=== PATIENT | female | born 1955 | race Caucasian/White ===

== ENCOUNTER 2017-01-23 17:36 | Emergency (ER) | payer MEDICARE, BC ==
[2017-01-23 17:01] LABS: BASOPHILS 0.7 %; BASOPHILS ABSOLUTE 0.08 10/3/uL (0.0-0.16); EOSINOPHILS 4.2 %; EOSINOPHILS ABSOLUTE 0.46 10/3/uL (0.0-0.53); HEMATOCRIT 40.2 % (36.0-48.0); HEMOGLOBIN 14.2 g/dL (12.0-16.0); IMMATURE GRANULOCYTES 0.4 %; IMMATURE GRANULOCYTES ABSOLUTE 0.04 10/3/uL (0.0-0.11); LYMPHOCYTES 35.8 %; LYMPHOCYTES ABSOLUTE 3.89 10/3/uL (0.67-4.30); MEAN CORPUS HGB CONC 35.3 g/dL (32.0-36.0); MEAN CORPUSCULAR HEMOGLOB 32.1 pg (26.0-34.0); MEAN CORPUSCULAR VOLUME 90.7 fL (80-100); MEAN PLATELET VOLUME 8.9 fL (9.2-13.0); MONOCYTES 4.8 %; MONOCYTES ABSOLUTE 0.52 10/3/uL (0.21-1.20); NEUTROPHILS 54.1 %; NEUTROPHILS ABSOLUTE 5.89 10/3/uL (2.02-8.40); RBC DISTRIBUTION WIDTH 15.5 % (12.0-16.0); RED CELL COUNT 4.43 10/6/uL (4.0-5.6); WHITE BLOOD CELLS 10.9 10/3/uL (4.5-10.5)
[2017-01-23 17:02] LABS: MANUAL DIFF NO %; PLATELET COUNT 273 10/3/uL (150-400)
[2017-01-23 17:11] LABS: INTERNATIONAL NORMAL RATI 1.1 UNITS (-); PROTIME (NOT ORD) 13.8 SEC (12.0-14.5)
[2017-01-23 17:12] LABS: PARTIAL THROMBO TIME 32.3 SEC (22.5-37.2)
[2017-01-23 17:18] LABS: BUN (BLOOD UREA NITROGEN) 8 MG/DL (6-23); CALCIUM, SERUM 8.8 MG/DL (8.5-10.4); CHEST PAIN PROFILE TAT 0 Hrs 23 Mins; CHLORIDE, SERUM 104 MMOL/L (96-112); CO2 (CARBON DIOXIDE) 29 MMOL/L (24-34); CREATININE 0.73 MG/DL (0.55-1.02); GFR AFRICAN AMERICAN 102 ML/MIN (>=60); GFR NON AFRICAN AMERICAN 88 ML/MIN (>=60); GLUCOSE, SERUM 100 MG/DL (60-99); POTASSIUM, SERUM 3.8 MMOL/L (3.5-5.3); SODIUM, SERUM 142 MMOL/L (135-148); TROPONIN I <0.02 NG/ML (<0.05)
[~2017-01-23 17:36] MED LIST: ABILIFY; ABILIFY10 PO; ABILIFY20 MG PO; ABILIFY30 MG PO; ACCUNE1; ACCUNE1 INH; ACCUNEB INH; ALBUTEROL5 INH; ALEVE220 MG PO; AMB10 PO; AMITIZA24 PO; ASAB PO; ASABAYER PO; ATIVAN2 MG PO; AUG875 PO; BACDS PO; BEN25 PO; BIST PO; CALCIUM TABLET PO; CALTRA600D PO; CARASPUDL PO; CENTRUM PO; CENTRUM TAB1 TAB PO; CIP5 PO; CIPRO; COREG12 PO; CYMBALTA20 PO; CYMBALTA30 PO; CYMBALTA60 PO; D.O.S.100 MG PO; DIOV80; DIOVAN; DIOVAN HC1 PO; DIOVAN HCT160 MG/25 PO; DIOVAN HCT320 MG/25 PO; DIOVAN320 MG PO; DSS PO; DUONEB INH; FISH-EPA1000 MG PO; FLAG500TAB PO; FLAGYL; FLUCON1 PO; FLUCON150 PO; HYOMAX-SL0.125 MG PO; IMDUR30 PO; IMDUR60 PO; KDUR20 PO; KLOR-CON M2020 MEQ PO; L40 PO; LEVAQUIN5T PO; LEVSINTAB PO; LOP25 PO; LOP50 PO; LORT7 PO; LORTAB 5 PO; METPAKSF; METPAKSF PO; MOVANTIK25 MG PO; MSCONTIN PO; MULTIVIT/MIN PO; MULTIVITAMI1 PO; NAP500 PO; NEUR600 PO; NICODERM C21 MG/241 TOP; NITROSTAT0.4 MG SL; NORV10 PO; NORV5 PO; NORVASC; OMNICEF300 PO; OXYCON40 PO; OXYCONTIN15 MG; P125 PO; PCET PO; PEP20 PO; PERCOCET1 TA2 PO; PERCOCET1 TA4 PO; PLAVIX PO; POT GLUCONAT550 M1 OR; PR25 PO; PREV30 PO; PRILO PO; PRILOSEC40 MG PO; PROAIR HFA INH; PROVENTSOL INH; PROVIGIL2 PO; RAN500 PO; REG PO; ROXICODONE15 MG PO; ROZEREM8 MG PO; SPIRIVA INH; SPIRIVA RESPIMAT INH; STERAPRED DS10 MG; STOOL SOFTEN100 MG PO; T PO; V5 PO; VICODINTAB PO; VITAMIN B PO; VITAMIN C OTC PO; VITAMIN D TABLET PO; VITAMIN D31000 UNIT PO; VITC500 PO; ZITH250 PO; ZITHROMAX500 MG PO; ZOCOR20 PO; ZOCOR40 PO; ZOFRAN4 PO; ZOL100 PO; ZOL50 PO
[2017-04-05] MEDS ORDERED: P20 PO (19:36)
[2017-04-05] MEDS ORDERED: CHERATUSSIN PO (19:37)
[2017-04-05] MEDS ORDERED: Z-PAK PO (19:37)
[2017-04-05] MEDS ORDERED: CARASPUDL PO (19:38)
[2017-04-05] MEDS ORDERED: P125 PO (19:38)
[2017-04-05] MEDS ORDERED: VITC500 PO (19:39)
[2017-04-05] MEDS ORDERED: IMDUR60 PO (19:39)
[2017-04-05] MEDS ORDERED: ASABAYER PO (19:41)
[2017-04-05] MEDS ORDERED: DIOVAN320 MG PO (19:41)
[2017-04-05] MEDS ORDERED: LOP100 PO (19:41)
[2017-04-05] MEDS ORDERED: ZOCOR20 PO (19:41)
[2017-04-05] MEDS ORDERED: NITROGLYCERIN SPRAY SL (19:42)
[2017-04-05] MEDS ORDERED: PRILOSEC40 MG PO (19:43)
[2017-04-05] MEDS ORDERED: CENTRUM PO (19:43)
[2017-04-05] MEDS ORDERED: KLOR-CON M2020 MEQ PO (19:43)
[2017-04-05] MEDS ORDERED: CYMBALTA60 PO (19:43)
[2017-04-05] MEDS ORDERED: ABILIFY30 MG PO (19:44)
[2017-04-05] MEDS ORDERED: SUPER B COMP PO (19:44)
[2017-04-05] MEDS ORDERED: METAMUCIL CAN7 OZ PO (19:46)
[2017-04-05] MEDS ORDERED: ANADS PO (19:46)
[2017-04-05] MEDS ORDERED: L40 PO (19:47)
[2017-04-05] MEDS ORDERED: DUONEB INH (19:48)
[2017-04-05] MEDS ORDERED: PROAIR HFA INH (19:48)
[2017-04-05] MEDS ORDERED: ZOFRAN ODT4 MG PO (19:48)
[2017-04-05] MEDS ORDERED: EXCEDRINE MIGRAINE PO (19:49)
[2017-04-05] MEDS ORDERED: CLEOCIN PE75 MG/5 ML PO (19:50)
[2017-04-05] MEDS ORDERED: DSS PO (19:51)
[2017-04-12] MEDS ORDERED: NORV5 PO (17:41)
[2017-04-12] MEDS ORDERED: FLUCON1 PO (17:44)
[2017-04-12] MEDS ORDERED: NYS500UDL PO (17:47)
[2017-04-12] MEDS ORDERED: OMNICEF300 PO (17:50)
[2017-04-12] MEDS ORDERED: MEDROL8 MG PO (17:51)
[2017-04-12] MEDS ORDERED: NORCO1 TA1 PO (17:51)
[2017-04-12] MEDS ORDERED: L40 PO (17:51)
[2017-05-26] MEDS ORDERED: NXL6 PO (15:12)
[2017-05-26] MEDS ORDERED: HYDROCHLOROT25 MG PO (15:13)
[2017-06-14] MEDS ORDERED: P125 PO (23:35)
[2017-06-14] MEDS ORDERED: IMDUR60 PO (23:36)
[2017-06-14] MEDS ORDERED: DIOVAN320 MG PO (23:36)
[2017-06-14] MEDS ORDERED: LOP100 PO (23:36)
[2017-06-14] MEDS ORDERED: ZOCOR20 PO (23:37)
[2017-06-14] MEDS ORDERED: HCTZ25B PO (23:37)
[2017-06-14] MEDS ORDERED: ASABAYER PO (23:37)
[2017-06-14] MEDS ORDERED: ADALAT CC60 MG PO (23:37)
[2017-06-14] MEDS ORDERED: KLOR-CON M2020 MEQ PO (23:38)
[2017-06-14] MEDS ORDERED: SUPER B COMP PO (23:38)
[2017-06-14] MEDS ORDERED: PRILOSEC40 MG PO (23:38)
[2017-06-14] MEDS ORDERED: CYMBALTA60 PO (23:38)
[2017-06-14] MEDS ORDERED: ABILIFY30 MG PO (23:38)
[2017-06-14] MEDS ORDERED: NITROLINGUAL S4.9 GM SL (23:39)
[2017-06-14] MEDS ORDERED: CENTRUM PO (23:39)
[2017-06-14] MEDS ORDERED: DSS PO (23:39)
[2017-06-14] MEDS ORDERED: VITC500 PO (23:39)
[2017-06-14] MEDS ORDERED: ZOFRAN ODT4 MG PO (23:40)
[2017-06-14] MEDS ORDERED: L40 PO (23:40)
[2017-06-14] MEDS ORDERED: PR25 PO (23:40)
[2017-06-14] MEDS ORDERED: CARASPUDL PO (23:41)
[2017-06-14] MEDS ORDERED: PROAIR HFA INH (23:41)
[2017-06-14] MEDS ORDERED: DUONEB INH (23:41)
[2017-06-16] MEDS ORDERED: NXL6 PO (14:05)
== END 2017-01-23 17:55 | disposition home or self-care (01) ==
LOC: ER 17:36
PROVIDERS: Emergency Medicine
DX: R07.89 Other chest pain (principal); F41.9 Anxiety disorder, unspecified; J44.9 Chronic obstructive pulmonary disease, unspecified; I10 Essential (primary) hypertension; F17.200 Nicotine dependence, unspecified, uncomplicated; Z88.2 Allergy status to sulfonamides; Z88.5 Allergy status to narcotic agent; Z88.8 Allergy status to other drugs, medicaments and biological substances; Z79.82 Long term (current) use of aspirin; Z79.899 Other long term (current) drug therapy
CPT/HCPCS: 71010; 80048; 83735; 84484; 85025; 85610; 85730; 93005; 96365; 99285; J2800

== ENCOUNTER 2017-02-12 03:37 | Emergency (ER) | payer MEDICARE, BC ==
[2017-02-12 03:27] LABS: BASOPHILS 0.4 %; BASOPHILS ABSOLUTE 0.05 10/3/uL (0.0-0.16); EOSINOPHILS 2.5 %; EOSINOPHILS ABSOLUTE 0.28 10/3/uL (0.0-0.53); HEMATOCRIT 38.5 % (36.0-48.0); HEMOGLOBIN 13.5 g/dL (12.0-16.0); IMMATURE GRANULOCYTES 0.4 %; IMMATURE GRANULOCYTES ABSOLUTE 0.04 10/3/uL (0.0-0.11); LYMPHOCYTES 32.6 %; LYMPHOCYTES ABSOLUTE 3.64 10/3/uL (0.67-4.30); MANUAL DIFF NO %; MEAN CORPUS HGB CONC 35.1 g/dL (32.0-36.0); MEAN CORPUSCULAR HEMOGLOB 32.5 pg (26.0-34.0); MEAN CORPUSCULAR VOLUME 92.8 fL (80-100); MEAN PLATELET VOLUME 8.8 fL (9.2-13.0); MONOCYTES 5.4 %; NEUTROPHILS 58.7 %; NEUTROPHILS ABSOLUTE 6.55 10/3/uL (2.02-8.40); PLATELET COUNT 239 10/3/uL (150-400); RED CELL COUNT 4.15 10/6/uL (4.0-5.6); WHITE BLOOD CELLS 11.2 10/3/uL (4.5-10.5)
[2017-02-12 03:34] LABS: PROTIME (NOT ORD) 13.2 SEC (12.0-14.5)
[2017-02-12 03:44] LABS: ALCOHOL 75 MG/DL (0); BUN (BLOOD UREA NITROGEN) 11 MG/DL (6-23); CALCIUM, SERUM 8.6 MG/DL (8.5-10.4); CHEST PAIN PROFILE TAT 0 Hrs 21 Mins; CHLORIDE, SERUM 105 MMOL/L (96-112); CO2 (CARBON DIOXIDE) 24 MMOL/L (24-34); GFR AFRICAN AMERICAN 79 ML/MIN (>=60); GFR NON AFRICAN AMERICAN 68 ML/MIN (>=60); GLUCOSE, SERUM 107 MG/DL (60-99); POTASSIUM, SERUM 3.4 MMOL/L (3.5-5.3); SALICYLATE 2.9 MG/DL (-); SODIUM, SERUM 144 MMOL/L (135-148); TROPONIN I <0.02 NG/ML (<0.05)
[2017-02-12 03:46] LABS: ACETAMINOPHEN LEVEL (TYLENOL) < 2.0 MCG/ML (10.0-20.0)
[2017-04-05] MEDS ORDERED: P20 PO (19:36)
[2017-04-05] MEDS ORDERED: Z-PAK PO (19:37)
[2017-04-05] MEDS ORDERED: CHERATUSSIN PO (19:37)
[2017-04-05] MEDS ORDERED: P125 PO (19:38)
[2017-04-05] MEDS ORDERED: CARASPUDL PO (19:38)
[2017-04-05] MEDS ORDERED: VITC500 PO (19:39)
[2017-04-05] MEDS ORDERED: IMDUR60 PO (19:39)
[2017-04-05] MEDS ORDERED: ZOCOR20 PO (19:41)
[2017-04-05] MEDS ORDERED: LOP100 PO (19:41)
[2017-04-05] MEDS ORDERED: ASABAYER PO (19:41)
[2017-04-05] MEDS ORDERED: DIOVAN320 MG PO (19:41)
[2017-04-05] MEDS ORDERED: NITROGLYCERIN SPRAY SL (19:42)
[2017-04-05] MEDS ORDERED: PRILOSEC40 MG PO (19:43)
[2017-04-05] MEDS ORDERED: KLOR-CON M2020 MEQ PO (19:43)
[2017-04-05] MEDS ORDERED: CYMBALTA60 PO (19:43)
[2017-04-05] MEDS ORDERED: CENTRUM PO (19:43)
[2017-04-05] MEDS ORDERED: ABILIFY30 MG PO (19:44)
[2017-04-05] MEDS ORDERED: SUPER B COMP PO (19:44)
[2017-04-05] MEDS ORDERED: ANADS PO (19:46)
[2017-04-05] MEDS ORDERED: METAMUCIL CAN7 OZ PO (19:46)
[2017-04-05] MEDS ORDERED: L40 PO (19:47)
[2017-04-05] MEDS ORDERED: ZOFRAN ODT4 MG PO (19:48)
[2017-04-05] MEDS ORDERED: DUONEB INH (19:48)
[2017-04-05] MEDS ORDERED: PROAIR HFA INH (19:48)
[2017-04-05] MEDS ORDERED: EXCEDRINE MIGRAINE PO (19:49)
[2017-04-05] MEDS ORDERED: CLEOCIN PE75 MG/5 ML PO (19:50)
[2017-04-05] MEDS ORDERED: DSS PO (19:51)
[2017-04-12] MEDS ORDERED: NORV5 PO (17:41)
[2017-04-12] MEDS ORDERED: FLUCON1 PO (17:44)
[2017-04-12] MEDS ORDERED: NYS500UDL PO (17:47)
[2017-04-12] MEDS ORDERED: OMNICEF300 PO (17:50)
[2017-04-12] MEDS ORDERED: L40 PO (17:51)
[2017-04-12] MEDS ORDERED: MEDROL8 MG PO (17:51)
[2017-04-12] MEDS ORDERED: NORCO1 TA1 PO (17:51)
[2017-05-26] MEDS ORDERED: NXL6 PO (15:12)
[2017-05-26] MEDS ORDERED: HYDROCHLOROT25 MG PO (15:13)
[2017-06-14] MEDS ORDERED: P125 PO (23:35)
[2017-06-14] MEDS ORDERED: LOP100 PO (23:36)
[2017-06-14] MEDS ORDERED: IMDUR60 PO (23:36)
[2017-06-14] MEDS ORDERED: DIOVAN320 MG PO (23:36)
[2017-06-14] MEDS ORDERED: ASABAYER PO (23:37)
[2017-06-14] MEDS ORDERED: ADALAT CC60 MG PO (23:37)
[2017-06-14] MEDS ORDERED: HCTZ25B PO (23:37)
[2017-06-14] MEDS ORDERED: ZOCOR20 PO (23:37)
[2017-06-14] MEDS ORDERED: KLOR-CON M2020 MEQ PO (23:38)
[2017-06-14] MEDS ORDERED: SUPER B COMP PO (23:38)
[2017-06-14] MEDS ORDERED: CYMBALTA60 PO (23:38)
[2017-06-14] MEDS ORDERED: ABILIFY30 MG PO (23:38)
[2017-06-14] MEDS ORDERED: PRILOSEC40 MG PO (23:38)
[2017-06-14] MEDS ORDERED: DSS PO (23:39)
[2017-06-14] MEDS ORDERED: NITROLINGUAL S4.9 GM SL (23:39)
[2017-06-14] MEDS ORDERED: VITC500 PO (23:39)
[2017-06-14] MEDS ORDERED: CENTRUM PO (23:39)
[2017-06-14] MEDS ORDERED: ZOFRAN ODT4 MG PO (23:40)
[2017-06-14] MEDS ORDERED: PR25 PO (23:40)
[2017-06-14] MEDS ORDERED: L40 PO (23:40)
[2017-06-14] MEDS ORDERED: CARASPUDL PO (23:41)
[2017-06-14] MEDS ORDERED: PROAIR HFA INH (23:41)
[2017-06-14] MEDS ORDERED: DUONEB INH (23:41)
[2017-06-16] MEDS ORDERED: NXL6 PO (14:05)
== END 2017-02-12 06:12 | disposition home or self-care (01) ==
LOC: ER 03:37
PROVIDERS: Nurse Practitioner
DX: R07.9 Chest pain, unspecified (principal); Z72.89 Other problems related to lifestyle; F41.9 Anxiety disorder, unspecified; I10 Essential (primary) hypertension; K21.9 Gastro-esophageal reflux disease without esophagitis; F32.9 Major depressive disorder, single episode, unspecified; F17.200 Nicotine dependence, unspecified, uncomplicated; E78.5 Hyperlipidemia, unspecified; Z95.5 Presence of coronary angioplasty implant and graft; Z88.2 Allergy status to sulfonamides; Z88.5 Allergy status to narcotic agent; Z88.8 Allergy status to other drugs, medicaments and biological substances; Z79.82 Long term (current) use of aspirin; Z79.899 Other long term (current) drug therapy
CPT/HCPCS: 71010; 80048; 80307; 83690; 83735; 84484; 85025; 85610; 85730; 93005; 99285; A9270-GY

== ENCOUNTER 2017-03-30 03:31 | Emergency (ER) | payer MEDICARE, BC ==
[2017-03-30 03:02] LABS: BASOPHILS 0.9 %; BASOPHILS ABSOLUTE 0.09 10/3/uL (0.0-0.16); EOSINOPHILS 4.3 %; EOSINOPHILS ABSOLUTE 0.44 10/3/uL (0.0-0.53); HEMATOCRIT 40.3 % (36.0-48.0); HEMOGLOBIN 13.5 g/dL (12.0-16.0); IMMATURE GRANULOCYTES 0.2 %; IMMATURE GRANULOCYTES ABSOLUTE 0.02 10/3/uL (0.0-0.11); LYMPHOCYTES 39.7 %; LYMPHOCYTES ABSOLUTE 4.11 10/3/uL (0.67-4.30); MEAN CORPUS HGB CONC 33.5 g/dL (32.0-36.0); MEAN CORPUSCULAR HEMOGLOB 32.5 pg (26.0-34.0); MEAN CORPUSCULAR VOLUME 97.1 fL (80-100); MEAN PLATELET VOLUME 9.1 fL (9.2-13.0); MONOCYTES 5.4 %; MONOCYTES ABSOLUTE 0.56 10/3/uL (0.21-1.20); NEUTROPHILS 49.5 %; NEUTROPHILS ABSOLUTE 5.12 10/3/uL (2.02-8.40); PLATELET COUNT 226 10/3/uL (150-400); RBC DISTRIBUTION WIDTH 13.6 % (12.0-16.0); RED CELL COUNT 4.15 10/6/uL (4.0-5.6); WHITE BLOOD CELLS 10.3 10/3/uL (4.5-10.5)
[2017-03-30 03:03] LABS: MANUAL DIFF NO %
[2017-03-30 03:18] LABS: A/G RATIO 1.1 (0.7-1.9); ALBUMIN 3.4 G/DL (3.5-5.0); ALKALINE PHOSPHATASE 70 U/L (45-117); BUN (BLOOD UREA NITROGEN) 13 MG/DL (6-23); CALCIUM, SERUM 8.3 MG/DL (8.5-10.4); CHLORIDE, SERUM 105 MMOL/L (96-112); CO2 (CARBON DIOXIDE) 27 MMOL/L (24-34); CREATININE 0.84 MG/DL (0.55-1.02); GFR AFRICAN AMERICAN 86 ML/MIN (>=60); GFR NON AFRICAN AMERICAN 74 ML/MIN (>=60); GLUCOSE, SERUM 93 MG/DL (60-99); POTASSIUM, SERUM 3.8 MMOL/L (3.5-5.3); SGOT(AST) 19 U/L (5-40); SGPT(ALT) 16 U/L (5-65); SODIUM, SERUM 142 MMOL/L (135-148); TOTAL BILIRUBIN 0.4 MG/DL (0-1.2); TOTAL PROTEIN 6.4 G/DL (6.0-8.5)
[2017-04-05] MEDS ORDERED: P20 PO (19:36)
[2017-04-05] MEDS ORDERED: CHERATUSSIN PO (19:37)
[2017-04-05] MEDS ORDERED: Z-PAK PO (19:37)
[2017-04-05] MEDS ORDERED: P125 PO (19:38)
[2017-04-05] MEDS ORDERED: CARASPUDL PO (19:38)
[2017-04-05] MEDS ORDERED: VITC500 PO (19:39)
[2017-04-05] MEDS ORDERED: IMDUR60 PO (19:39)
[2017-04-05] MEDS ORDERED: ASABAYER PO (19:41)
[2017-04-05] MEDS ORDERED: LOP100 PO (19:41)
[2017-04-05] MEDS ORDERED: DIOVAN320 MG PO (19:41)
[2017-04-05] MEDS ORDERED: ZOCOR20 PO (19:41)
[2017-04-05] MEDS ORDERED: NITROGLYCERIN SPRAY SL (19:42)
[2017-04-05] MEDS ORDERED: PRILOSEC40 MG PO (19:43)
[2017-04-05] MEDS ORDERED: CYMBALTA60 PO (19:43)
[2017-04-05] MEDS ORDERED: KLOR-CON M2020 MEQ PO (19:43)
[2017-04-05] MEDS ORDERED: CENTRUM PO (19:43)
[2017-04-05] MEDS ORDERED: ABILIFY30 MG PO (19:44)
[2017-04-05] MEDS ORDERED: SUPER B COMP PO (19:44)
[2017-04-05] MEDS ORDERED: METAMUCIL CAN7 OZ PO (19:46)
[2017-04-05] MEDS ORDERED: ANADS PO (19:46)
[2017-04-05] MEDS ORDERED: L40 PO (19:47)
[2017-04-05] MEDS ORDERED: PROAIR HFA INH (19:48)
[2017-04-05] MEDS ORDERED: DUONEB INH (19:48)
[2017-04-05] MEDS ORDERED: ZOFRAN ODT4 MG PO (19:48)
[2017-04-05] MEDS ORDERED: EXCEDRINE MIGRAINE PO (19:49)
[2017-04-05] MEDS ORDERED: CLEOCIN PE75 MG/5 ML PO (19:50)
[2017-04-05] MEDS ORDERED: DSS PO (19:51)
[2017-04-12] MEDS ORDERED: NORV5 PO (17:41)
[2017-04-12] MEDS ORDERED: FLUCON1 PO (17:44)
[2017-04-12] MEDS ORDERED: NYS500UDL PO (17:47)
[2017-04-12] MEDS ORDERED: OMNICEF300 PO (17:50)
[2017-04-12] MEDS ORDERED: MEDROL8 MG PO (17:51)
[2017-04-12] MEDS ORDERED: NORCO1 TA1 PO (17:51)
[2017-04-12] MEDS ORDERED: L40 PO (17:51)
[2017-05-26] MEDS ORDERED: NXL6 PO (15:12)
[2017-05-26] MEDS ORDERED: HYDROCHLOROT25 MG PO (15:13)
[2017-06-14] MEDS ORDERED: P125 PO (23:35)
[2017-06-14] MEDS ORDERED: IMDUR60 PO (23:36)
[2017-06-14] MEDS ORDERED: DIOVAN320 MG PO (23:36)
[2017-06-14] MEDS ORDERED: LOP100 PO (23:36)
[2017-06-14] MEDS ORDERED: HCTZ25B PO (23:37)
[2017-06-14] MEDS ORDERED: ADALAT CC60 MG PO (23:37)
[2017-06-14] MEDS ORDERED: ASABAYER PO (23:37)
[2017-06-14] MEDS ORDERED: ZOCOR20 PO (23:37)
[2017-06-14] MEDS ORDERED: CYMBALTA60 PO (23:38)
[2017-06-14] MEDS ORDERED: SUPER B COMP PO (23:38)
[2017-06-14] MEDS ORDERED: ABILIFY30 MG PO (23:38)
[2017-06-14] MEDS ORDERED: PRILOSEC40 MG PO (23:38)
[2017-06-14] MEDS ORDERED: KLOR-CON M2020 MEQ PO (23:38)
[2017-06-14] MEDS ORDERED: NITROLINGUAL S4.9 GM SL (23:39)
[2017-06-14] MEDS ORDERED: DSS PO (23:39)
[2017-06-14] MEDS ORDERED: CENTRUM PO (23:39)
[2017-06-14] MEDS ORDERED: VITC500 PO (23:39)
[2017-06-14] MEDS ORDERED: ZOFRAN ODT4 MG PO (23:40)
[2017-06-14] MEDS ORDERED: L40 PO (23:40)
[2017-06-14] MEDS ORDERED: PR25 PO (23:40)
[2017-06-14] MEDS ORDERED: CARASPUDL PO (23:41)
[2017-06-14] MEDS ORDERED: PROAIR HFA INH (23:41)
[2017-06-14] MEDS ORDERED: DUONEB INH (23:41)
[2017-06-16] MEDS ORDERED: NXL6 PO (14:05)
== END 2017-03-30 03:53 | disposition home or self-care (01) ==
LOC: ER 03:31
PROVIDERS: Specialist
DX: L02.211 Cutaneous abscess of abdominal wall (principal); I10 Essential (primary) hypertension; F41.9 Anxiety disorder, unspecified; F17.200 Nicotine dependence, unspecified, uncomplicated; Z95.5 Presence of coronary angioplasty implant and graft; Z88.2 Allergy status to sulfonamides; Z88.5 Allergy status to narcotic agent; Z88.8 Allergy status to other drugs, medicaments and biological substances; Z79.82 Long term (current) use of aspirin; Z79.899 Other long term (current) drug therapy
CPT/HCPCS: 74176; 80053; 85025; 99284; A9270-GY